=== PATIENT | female | born 1960 | race Caucasian/White ===

== ENCOUNTER 2017-01-04 07:43 | Emergency (ER) | payer BC, MEDICARE, OTHER ==
--- NOTE | 2017-01-04 08:40 | RAD ---
INDICATION: Right thumb injury COMPARISON: None TECHNIQUE: AP, lateral, and oblique views were obtained. FINDINGS: There is a tiny avulsion fracture from the dorsal aspect of the base of the proximal fossa the thumb. There is associated soft tissue swelling. There are no other fractures.. IMPRESSION: SMALL AVULSION FRACTURE AT THE MCP JOINT
--- NOTE | 2017-01-04 08:51 | UC ---
Hand/Wrist HPI - HPI Summary HPI Summary: left hip pain and right thumb pain x 1 day s/p fall and injured her left hip and right thumb + swelling of the left hip , waling well with good strength - History Of Current Complaint Chief Complaint: UCUpperExtremity Stated Complaint: RIGHT HAND INJURY Time Seen by Provider: 01/04/17 07:55 Hx Obtained From: Patient Hx Last Menstrual Period: 05/2014 Mechanism Of Injury: s/p fall Onset/Duration: Sudden Onset, Lasting Days - 1, Still Present Severity Initially: Moderate Severity Currently: Moderate Character Of Pain: Aching Aggravating Factor(s): Movement, Lifting, Flexion, Extension, Abduction, Adduction, Twisting Alleviating: Rest, Ice Associated Signs And Symptoms: Positive: Swelling, Bruising, Weakness. Negative : Redness, Numbness/Tingling - Allergies/Home Medications Allergies/Adverse Reactions: Allergies Allergy/AdvReac Type Severity Reaction Status Date / Time Codeine AdvReac Intermediate Vomiting Verified 01/04/17 07:57 Pseudoephedrine AdvReac See Comment Verified 02/03/16 17:04 [From [facility]] Home Medications: Home Medications Biotin 5 mg PO DAILY 01/04/17 [History Confirmed 01/04/17] Cholecalciferol [Vitamin D] 1,000 unit PO DAILY 01/04/17 [History Confirmed ] Multiple Vitamin [Multi Vitamin] 1 tab PO DAILY 01/04/17 [History Confirmed ] Stanley-3 Fatty Acids [Fish Oil] 500 mg PO DAILY 01/04/17 [History Confirmed 01/04] PMH/Surg Hx/FS Hx/Imm Hx Previously Healthy: Yes - Surgical History Surgical History: Yes Surgery Procedure, Year, and Place: as a child pyloric stenosis. laproscopic for endometriosis, D&C'S SEVERAL - Family History Known Family History: Positive: Other - cancer Negative: Diabetes - Social History Alcohol Use: None Substance Use Type: None Smoking Status (MU): Never Smoked Tobacco Review of Systems Constitutional: Negative Skin: Negative Eyes: Negative ENT: Negative Respiratory: Negative All Other Systems Reviewed And Are Negative: Yes Physical Exam Triage Information Reviewed: Yes Appearance: Well-Appearing, No Pain Distress, Well-Nourished Vital Signs: Initial Vital Signs Temp 98.5 F 01/04/17 07:49 Pulse 74 01/04/17 07:49 Resp 16 01/04/17 07:49 BP 183/87 01/04/17 07:49 Pulse Ox 99 01/04/17 07:49 Eye Exam: Normal ENT Exam: Normal ENT: Positive: Normal ENT inspection, Hearing grossly normal, Pharynx normal Neck exam: Normal Respiratory: Positive: Chest non-tender, Lungs clear, Normal breath sounds Cardiovascular: Positive: RRR, No Murmur, Pulses Normal Abdominal Exam: Normal Musculoskeletal: Positive: Other: - left hip: + swelling, ecchymosis, tender to touch, good ROM , normal strength right thumb: + swelling proximal phalangs, + tenderness, pain with flexion and extension, decrease in strength, Hand/Wrist Course/Dx - Differential Dx/Diagnosis Provider Diagnoses: avulsion fracute right thumb. contusion left hip Discharge - Discharge Plan Condition: Stable Disposition: HOME Patient Education Materials: Thumb Fracture (ED) Referrals: Rock Tate MD [Medical Doctor] - [facility] [Primary Care Provider] -
[2017-01-04 09:00] VITALS: BP 183/87
== END 2017-01-04 08:47 | disposition home or self-care (01) ==
LOC: UCCORT 07:43
DX: S62.501A Fracture of unspecified phalanx of right thumb, initial encounter for closed fracture (principal); S70.02XA Contusion of left hip, initial encounter; W19.XXXA Unspecified fall, initial encounter; Y92.9 Unspecified place or not applicable
CPT/HCPCS: 99212; G0463